=== PATIENT | female | born 1995 | race Caucasian/White ===

== ENCOUNTER 2017-11-17 11:45 | Emergency (ER) | payer OTHER ==
[2017-11-17] MEDS ORDERED: Sulfameth/Trimethoprim DS 800-160mg TAB ONE (12:22)
[2017-11-17] MEDS ORDERED: Lidocaine 1% 20 ML MDV ONE (12:37)
[2017-11-17] MEDS ORDERED: Fentanyl 100 MCG/2 ML VIAL ONE (12:37)
[2017-11-17] MEDS ORDERED: Ondansetron ODT 4 MG TAB ONE (13:03)
== END 2017-11-17 13:25 | disposition home or self-care (01) ==
LOC: MADERS 11:45
DX: N75.1 Abscess of Bartholin's gland (principal)
CPT/HCPCS: 56420; 96374; J2001; J3010; Q0162

== ENCOUNTER 2019-03-02 00:29 | Emergency (ER) | payer OTHER ==
[2019-03-02] MEDS ORDERED: Sodium Chloride 0.9% 1,000 ML ONE (00:58)
[2019-03-02 01:14] LABS: Hemoglobin 12.3 g/dL (12.0-16.0); Mean Corpuscular HGB CONC 35.1 g/dL (32.0-36.0); Mean Corpuscular Volume 88.3 fL (78.0-98.0); Mean Platelet Volume 6.9 fL (7.4-10.4); Platelet Count 296 thou/uL (130-400); Red Blood Cell (RBC) Count 3.97 mill/uL (4.20-5.40); White Blood Cell (WBC) Count 20.3 thou/uL (4.8-10.8)
[2019-03-02 01:31] LABS: AST (SGOT) 10 U/L (5-34); Albumin 3.5 g/dL (3.5-5.0); Alkaline Phosphatase 115 U/L (40-150); Anion Gap 13 mmol/L (10-20); BUN (Urea Nitrogen) 6 mg/dL (7.0-18.7); Bilirubin, Total Less than 0.2 mg/dL (0.2-1.2); Calc. Creatinine Clearance 0 mL/min (70-130); Calcium 8.9 mg/dL (7.8-10.44); Carbon Dioxide 22 mmol/L (22-29); Chloride 106 mmol/L (98-107); Estimated GFR-MDRD Greater than 90; Globulin 3.4 g/dL (2.4-3.5); Glucose 90 mg/dL (70-105); Potassium 3.5 mmol/L (3.5-5.1); Protein, Total 6.9 g/dL (6.0-8.3); Sodium 137 mmol/L (136-145)
[2019-03-02 01:37] LABS: Bilirubin Negative (Negative); Blood, Urine Negative (Negative); Clarity Clear (Clear); Glucose, Urine (Dipstick) Negative (Negative); Leukocyte Negative (Negative); Nitrite Negative (Negative); Protein, Urine (Dipstick) Negative (Neg-Trace); Urobilinogen 0.2 mg/dL (Less than 2)
[2019-03-02 01:51] LABS: ALT (SGPT) Less than 7 U/L (8-55)
[2019-03-02 02:03] LABS: Band 1 % (5-11); Lymphocytes 16 % (21-51); MDiff Complete? YES; Monocytes 3 % (0-10); Neutrophil 80 % (42-75); Platelet Morphology Comment Appears Adequate; RBC Morphology Normal
== END 2019-03-02 01:18 | disposition short-term general hospital (02) ==
LOC: MADERS 00:29
DX: O99.89 Other specified diseases and conditions complicating pregnancy, childbirth and the puerperium (principal); R10.2 Pelvic and perineal pain; F17.210 Nicotine dependence, cigarettes, uncomplicated; Z3A.26 26 weeks gestation of pregnancy
CPT/HCPCS: 80053; 81003; 85025; 99284; J7050